=== PATIENT | female | born 1990 ===

== ENCOUNTER 2024-10-13 05:30 | Day surgery (SDC) | payer OTHER ==
[2024-10-13] MEDS ORDERED: MIDAZOLAM HCL/PF 5 MG/ML VIAL IV ONE (08:30)
[2024-10-13] MEDS ORDERED: fentaNYL CITRATE 50 MCG/ML AMPUL IV PUSH ONE (08:30)
[2024-10-13] MEDS ORDERED: DIPHENHYDRAMINE HCL 50 MG/ML VIAL 1ML IV ONE (08:30)
== END 2024-10-13 09:40 | disposition home or self-care (01) ==
LOC: AMB-ENDOS 05:30
PROVIDERS: ATTEND Surgery
DX: R10.13 Epigastric pain (principal); K44.9 Diaphragmatic hernia without obstruction or gangrene; E66.09 Other obesity due to excess calories